=== PATIENT | female | born 1945 | race Caucasian/White ===

== ENCOUNTER 2024-11-26 08:37 | Outpatient (CLI) | payer MEDICARE, BC ==
[~2024-11-26 08:37] MED LIST: AMLO10TA13 PO; ANAS1TAB10 PO; CELE-127 PO; GABA-530 PO; HYDR25TA5 PO; LEVO137T19 PO; METO-384 PO
== END 2024-11-26 23:59 | disposition home or self-care (01) ==
LOC: MRI02 08:37
PROVIDERS: ATTEND Physician Assistant Surgical
DX: M51.379 Other intervertebral disc degeneration, lumbosacral region without mention of lumbar back pain or lower extremity pain (principal); M47.817 Spondylosis without myelopathy or radiculopathy, lumbosacral region; M48.07 Spinal stenosis, lumbosacral region
CPT/HCPCS: 72148